=== PATIENT | female | born 1950 | race Caucasian/White ===

== ENCOUNTER → 2016-12-24 | Outpatient (CLI) | payer MEDICARE, OTHER ==
--- NOTE | 2016-12-24 16:15 | US ---
EXAM DESCRIPTION: Soft Tissue,Head/Neck CLINICAL HISTORY: 66 years Female, SKIN NODULE COMPARISON: None. TECHNIQUE: Limited grayscale and color Doppler imaging of the midline left lower neck. Images were saved to the patient's medical record. FINDINGS: There is a 9 mm x 10 mm x 5 mm hypoechoic ovoid focus seen within the area of concern. This is noted roughly 1 mm below the skin surface. This is likely compatible with a sebaceous cyst or other dermal abnormality. IMPRESSION: Skin related sebaceous cyst. This is not a lymph node given its location. Electronically signed by: Deandre Oshea MD 12/24/2016 4:14 PM CDT
== END | disposition home or self-care (01) ==
LOC: US 15:40
PROVIDERS: ATTEND Nurse Practitioner Acute Care
DX: L72.3 Sebaceous cyst (principal)

== ENCOUNTER → 2017-01-06 | Outpatient (CLI) | payer MEDICARE, OTHER | END | disposition home or self-care (01) | LOC: GMAM 18:15 | PROVIDERS: ATTEND Family Medicine | DX: J30.1 Allergic rhinitis due to pollen (principal) ==

== ENCOUNTER → 2017-07-30 | Outpatient (CLI) | payer MEDICARE, OTHER | END | disposition home or self-care (01) | LOC: MAMMO 11:32 | PROVIDERS: ATTEND Family Medicine | DX: Z12.31 Encounter for screening mammogram for malignant neoplasm of breast (principal) | CPT/HCPCS: 77063; G0202 ==

== ENCOUNTER → 2017-10-14 | Outpatient (CLI) | payer MEDICARE, OTHER | END | disposition home or self-care (01) | LOC: GMAM 14:27 | PROVIDERS: ATTEND Family Medicine | DX: J44.1 Chronic obstructive pulmonary disease with (acute) exacerbation (principal) ==

== ENCOUNTER → 2018-01-06 | Outpatient (CLI) | payer MEDICARE, OTHER | LOC: GMAM 17:26 | PROVIDERS: ATTEND Family Medicine | DX: R63.4 Abnormal weight loss (principal) ==

== ENCOUNTER → 2018-01-12 | Outpatient (CLI) | payer MEDICARE, OTHER ==
--- NOTE | 2018-01-12 10:28 | CT ---
EXAM DESCRIPTION: Chest w/Contrast : Computed Tomography. CLINICAL HISTORY: COUGH COMPARISON: CT scan abdomen and pelvis with contrast on the same visit. TECHNIQUE: Spiral-axial scans at 5.0 mm intervals through the lungs and thorax without IV contrast. 2.5 mm lung algorithm axial reconstructions. Coronal and sagittal 2.0 Mm reconstructions. No adverse reactions. Total Exam DLP: 238.18 mGy-cm. This exam was performed according to our departmental dose-optimization program which includes automated exposure control, adjustment of the mA and/or kV according to patient size and/or use of iterative reconstruction technique; to reduce radiation dose to as low as reasonably achievable (ALARA). FINDINGS: Marked enlargement of airspaces and destruction of alveoli with septal thickening more prevalent in the upper lobes decreasing inferiorly. Also more severe in the right upper lobe and in the left. Bilateral elongated parenchymal scars. More likely scarring than a nodule in the lateral right apex which extends to the pleura. Mosaic density in the lung parenchyma bilateral lower lobes. No pleural effusion or pneumothorax. Contrast enhancement relatively uniform in the thyroid gland. Also mediastinum and hilum with no enlarged lymph nodes or soft tissue masses. No enlarged axillary lymph nodes. Spondylosis at several levels in the thoracic spine with distraction. Calcification in the T12-L1 disc. No bone destruction. Partially healed right lateral sixth and seventh rib fractures. IMPRESSION: 1. Marked emphysematous changes in the lungs more severe in the upper lung nolasco than lower lung nolasco and more severe in the right upper lobe. No acute infiltrate. No pleural effusion or pneumothorax. Parenchymal scarring. More likely right apical scarring than nodule. Consider 3-[address] follow-up. 2. No masses or nodules in the mediastinum hilum or axilla or soft tissues. 3. Healing fractures of the lateral right sixth and seventh ribs. Electronically signed by: Jeronimo Barrios MD 01/12/2018 10:24 AM CDT
--- NOTE | 2018-01-12 11:04 | CT ---
EXAM DESCRIPTION: Abdomen/Pelvis w/Contrast: Computed Tomography. CLINICAL HISTORY: COUGH COMPARISON: None. TECHNIQUE: Spiral-axial scans at 5.0 mm intervals through the abdomen and pelvis, after nonionic IV contrast. No oral contrast. Coronal and sagittal 2.0 mm reconstructions. Delayed scans, liver through the pelvis. Axial-spiral 5mm. No adverse reactions. Total Exam DLP: 496.48 mGy-cm. This exam was performed according to our departmental dose-optimization program which includes automated exposure control, adjustment of the mA and/or kV according to patient size and/or use of iterative reconstruction technique; to reduce radiation dose to as low as reasonably achievable (ALARA). FINDINGS: Liver, Stomach, Spleen, Adrenal Glands: Negative. Adrenal glands difficult to visualize due to lack of surrounding fat. Pancreas, Gallbladder, Ducts: Gallbladder visualized. Minimal duct dilation. Pancreas is small and evaluation limited due to lack of surrounding fat. Kidneys and Ureters: Unremarkable. Mesentery: Minimal in most regions. No free air. No ascites. Aorta: Ectasia with atherosclerotic calcification and intimal wall thickening. Small Bowel: Gas and minimal fluid in most small bowel loops with no significant distention or air-fluid levels. Terminal Ileum/Cecum: Not distended by gas or stool. Appendix not seen. Colon: Diffuse gas and fecal matter. Marked redundancy of the sigmoid colon but no air-fluid levels. Pelvic Organs: No radiodense stones are material in the urinary bladder. Vaginal cuff unremarkable. Multiple loops of small bowel in the upper and mid pelvis. No fluid in the cul-de-sac. Spine and Bony Pelvis: Grade 2-3 L5-S1 anterolisthesis with significant disc space loss and bilateral foraminal stenosis. Bilateral L5 spondylolysis. Calcification in the T12-L1 disc space. Bilateral SI joint and pubic symphysis arthrosis. Bilateral hip joint arthrosis. Cyst in the anterior base of the lateral right femoral head. Abdominal Wall/Back Soft Tissues: Negative. IMPRESSION: 1. Gas throughout small bowel with obstipation indicated by fecal material throughout colon. Significant redundancy of the sigmoid colon. No significant air-fluid levels or bowel distention. No free air. 2. No soft tissue mass or abnormal enhancement or focal mass in the solid organs. No ascites or free fluid. 3. Grade 2-3 L5-S1 anterolisthesis with bilateral L5 pars spondylolysis and severe disc degeneration and disc space loss. Also bilateral severe foraminal stenosis. Correlate for bilateral L5 radiculopathy. Mild arthrosis bilateral SI joints. Bilateral hip arthrosis. 4. Mild to moderate atherosclerotic changes in the aorta. No aneurysm Electronically signed by: Jeronimo Barrios MD 01/12/2018 11:03 AM CDT
== END | disposition home or self-care (01) ==
LOC: CT 08:01
PROVIDERS: ATTEND Family Medicine
DX: R05 Cough (principal); R14.0 Abdominal distension (gaseous)

== ENCOUNTER → 2018-08-02 | Outpatient (CLI) | payer MEDICARE, OTHER ==
--- NOTE | 2018-08-03 10:22 | MAM ---
EXAM DESCRIPTION: 3D Screening BILATERAL : Digital Mammography. CLINICAL HISTORY: 68 years Female SCREENING . No complaints. No personal history of breast cancer. Sister with breast cancer. Childbirth. Postmenopausal 36 years. No HRT. Lifetime risk of developing breast cancer (Tyrer-Cuzick model)(%): 10.8. COMPARISON: Bilateral screening digital breast tomosynthesis 07/30/2017. TECHNIQUE: Bilateral CC and MLO projection full-field images, Digital tomosynthesis mammographic technique. Bilateral digital 2-D full-field MLO images. CAD not utilized. FINDINGS: The breast parenchymal density pattern is: Heterogeneously dense breast tissue, which may obscure small masses. No skin thickening or nipple retraction. Bilateral coarse calcifications and microcalcifications. Small circumscribed mass density in the retroareolar left breast 6:00 is no longer present. New mass density upper outer quadrant of the retroareolar right breast approximately 2:00 position. Not associated with microcalcifications. Similar density to surrounding fibroglandular tissues. Partially circumscribed margins. No new focal, stellate mass or density, focal asymmetry , and no suspicious microcalcifications left breast. IMPRESSION: BI-RADS CATEGORY: 0 - INCOMPLETE- Need additional imaging evaluation. FOLLOW-UP: Recall for additional imaging: Targeted right breast ultrasound retroareolar tissues.. Written communication concerning the IMPRESSION and Follow-up, will be mailed to the patient and referring health care provider. Electronically signed by: Jeronimo Barrios MD 08/03/2018 10:20 AM CDT
== END ==
LOC: MAMMO 12:30
PROVIDERS: ATTEND Family Medicine
DX: Z12.31 Encounter for screening mammogram for malignant neoplasm of breast (principal)

== ENCOUNTER → 2018-08-12 | Outpatient (CLI) | payer MEDICARE, OTHER ==
--- NOTE | 2018-08-12 15:48 | US ---
EXAM DESCRIPTION: Breast,Right: Ultrasound CLINICAL HISTORY: 68 yearsFemaleABN MAMMO COMPARISON: Digital tomosynthesis screening bilateral breast 08/02/2018. TECHNIQUE: Transcutaneous scanning of the right breast utilizing stockton-scale and Doppler modes. Scanning performed by the writing manager ; observation by Dr. Barrios. FINDINGS: Predominantly fibroglandular echotexture with scattered islands of fatty tissue. In the retroareolar right breast there are multiple cysts with circumscribed mendenhall, decreased or no echoes, parallel orientation and posterior enhancement features. Also visualized is a circumscribed hypoechoic mass measuring 7.7 x 6.8 mm with parallel orientation, central echogenicity and mixed posterior features. Nonvascular. Most likely a lymph node. No parenchymal edema or large calcifications. No overlying skin changes and no abnormal vascularity. IMPRESSION: Benign exam. BIRAD CATEGORY: 2 BENIGN FINDINGS. RECOMMENDATIONS: FOLLOW UP: Return to routine digital bilateral mammographic screening, one year interval from July 2018. The FINDINGS and the FOLLOW-UP plan were reviewed in person with the patient after the examination. Written communication explaining the IMPRESSION and FOLLOW-UP will be mailed to the patient and referring care provider. According to the [employer], yearly mammograms are recommended starting at age 40 and continuing as long as a woman is in good health. Any breast change noted on a breast self-exam should be reported promptly to the patient's healthcare provider. Breast MRI is recommended for women with an approximately 20-25% or greater lifetime risk of breast cancer, including women with a strong family history of breast or ovarian cancer and women who have been treated for Hodgkin's disease. A negative mammographic report should not delay tissue diagnosis in patients with significant clinical history or physical findings. Extremely dense breast tissue limits the sensitivity of digital mammography. Electronically signed by: Jeronimo Barrios MD 08/12/2018 3:46 PM CDT
== END ==
LOC: MAMMO 11:00
PROVIDERS: ATTEND Family Medicine
DX: N63.12 Unspecified lump in the right breast, upper inner quadrant (principal)

== ENCOUNTER 2018-09-10 13:10 | Inpatient (IN) | payer MEDICARE, OTHER ==
--- NOTE | 2018-09-10 13:20 | HP ---
SUPERVISING PHYSICIAN: Mahin Davidson MD CHIEF COMPLAINT: Shortness of breath. HISTORY OF PRESENT ILLNESS: This is a 68-year-old female patient who started having some upper respiratory symptoms with runny nose on Thursday of last week. By Thursday, she became very short of breath. By Thursday, she had progressively worsened to the point that she went to [facility] and saw Juhi Sanchez, Nurse Practitioner, and was given a Rocephin injection, a Celestone injection as well as given a prednisone taper and Levaquin prescription. She went to the pharmacy and was only given the prednisone. She was unaware that she was supposed to have gotten the Levaquin, so she returned to see her primary care physician, Dr. Shakira Perez, today and was extremely short of breath. She first refused to come to the hospital and Dr. Perez said she should go sampler pickup the Levaquin, but by the time she got out to her car, she was so short of breath that she decided she would come to the hospital. Dr. Perez called me and the patient will be directly admitted to the hospital. A chest x-ray was done at the Clinic, but no lab was done. The patient was directly admitted to the hospital. PAST MEDICAL HISTORY: 1. Chronic obstructive pulmonary disease with asthma. 2. Fibrocystic breast disease. 3. History of pulmonary nodule, stable. 4. Chronic tobacco use. 5. Diverticulosis of the colon. PAST SURGICAL HISTORY: 1. Appendectomy. 2. Hysterectomy. 3. Tonsillectomy and adenoidectomy. 4. Ectopic . OUTPATIENT MEDICATIONS: 1. Albuterol. 2. Estradiol. 3. Spiriva. 4. Calcium. 5. Multivitamin. ALLERGIES: NO KNOWN DRUG ALLERGIES. SOCIAL HISTORY: She lives in [place]. She is . She has two children. She currently smokes one pack of cigarettes daily. She has smoked for 46 years. She drinks alcohol on a social basis only and denies any illicit drug use. REVIEW OF SYSTEMS: GENERAL: Positive for fatigue. Negative for chills or fever. RESPIRATORY: Positive for coughing, wheezing, shortness of breath. CARDIAC: Negative for chest pain, palpitations or tachycardia. GASTROINTESTINAL: Negative for nausea, vomiting, diarrhea, constipation. GENITOURINARY: Negative for hematuria, dysuria or polyuria. MUSCULOSKELETAL: Negative for arthralgias, myalgias. NEUROLOGIC: Negative for weakness, headache, dizziness or seizures. PHYSICAL EXAMINATION: VITAL SIGNS: Temperature 97.4. Heart rate 65. Blood pressure 122/76. Respiratory rate 18 to 22. O2 saturation 86% on room air. It comes up to 91% on 2 liters nasal cannula. Her O2 saturation in the clinic was 84%. GENERAL: This is a 68-year-old, thin female patient who is sitting in her hospital bed. She is in mild respiratory distress. HEENT: Normocephalic, atraumatic. Pupils are equal and reactive. Oropharynx is clear. She does have some mild rhinorrhea. NECK: Supple without mass. RESPIRATORY: Expiratory wheezing throughout all lung nolasco as well as a few scattered rhonchi. She is somewhat diminished at the bases. CHEST: There is equal rise and fall of the chest with inspiration and expiration. She is slightly tachypneic at times. CARDIOVASCULAR: Regular rate and rhythm. GASTROINTESTINAL: Abdomen is soft, nondistended, nontender. Bowel sounds are positive. EXTREMITIES: No cyanosis, clubbing or edema. NEUROLOGIC: Awake, alert and oriented times three. Cranial nerves II-XII are grossly intact. LABORATORY: Her CMP, CBC, cardiac enzymes and blood cultures are pending at this time. IMPRESSION: 1. Chronic obstructive pulmonary disease with exacerbation in a chronic smoker. She has failed outpatient therapy and there are concerns for community acquired pneumonia. 2. History of pulmonary nodule that is stable. 3. Tobacco abuse with a 46+ pack year history. PLAN: We will admit the patient to the hospital. I have initiated pneumonia guidelines. She will continue on aggressive pulmonary hygiene including nebulizer treatments, both p.r.n. and scheduled. I have added Mucinex twice daily. I have encouraged her to stop smoking. She will have a nicotine patch. I will give her 1 liter of fluids. I will repeat her lab and chest x-ray in the morning. We will monitor cultures closely. I have also ordered a sputum culture with gram stain. I have also ordered some Solu-Medrol that I have tapered for the next several days. I will restart her home medications as soon as they are verified. We will continue to monitor the patient closely and follow as needed. Dr. Davidson is the collaborating physician and available for consultation. #[id number] [facility]
[2018-09-10] MEDS ORDERED: SODIUM CHLORIDE 0.9% (FLUSH) 10 ML SYG IV PRN (13:39)
[2018-09-10] MEDS ORDERED: ACETAMINOPHEN 325 MG TAB PO PRN (13:39)
[2018-09-10] MEDS ORDERED: ALBUTEROL SULFATE 2.5 MG/3 ML VIAL NEB PRN (13:39)
[2018-09-10] MEDS ORDERED: IV SET AND CAP CHANGE INJ INJ SCH (14:00)
[2018-09-10] MEDS ORDERED: methylPREDNISolone SODIUM SUC 125 MG/2 ML VIAL IV ONE (14:00)
[2018-09-10] MEDS ORDERED: SODIUM CHLORIDE 0.9% 1000ML 1,000 ML IVS ONE ×2 (14:23→20:08)
[2018-09-10] MEDS: IPRATROPIUM/ALBUTEROL 3 ML VIAL INH SCH ×2 (14:43→16:50)
[2018-09-10] MEDS: guaiFENesin ER TAB 600 MG TAB PO SCH ×2 (14:58→20:54)
[2018-09-10] MEDS: levoFLOXacin 750MG IV 750 MG in PREMIX BAG 1 BAG IVPB SCH (14:58)
[2018-09-10] MEDS: NICOTINE PATCH 14 MG TD SCH (14:59)
[2018-09-10] MEDS ORDERED: LEVALBUTEROL NEBS 1.25 MG/3 ML VIAL NEB PRN (19:26)
[2018-09-10] MEDS: LEVALBUTEROL NEBS 1.25 MG/3 ML VIAL NEB SCH (20:24)
[2018-09-10] MEDS: ENOXAPARIN SODIUM 40 MG/0.4 ML SYG SUBCU SCH (20:54)
[2018-09-10] MEDS: SODIUM CHLORIDE 0.9% (FLUSH) 10 ML SYG IV SCH (20:55)
[2018-09-10] MEDS ORDERED: methylPREDNISolone SODIUM SUC 125 MG/2 ML VIAL IV SCH (22:00)
[2018-09-11] MEDS ORDERED: methylPREDNISolone SODIUM SUC 125 MG/2 ML VIAL IV SCH (06:00)
[2018-09-11] MEDS: PANTOPRAZOLE SODIUM IV 40 MG VIAL IV SCH (06:09)
--- NOTE | 2018-09-11 06:34 | RAD ---
EXAM DESCRIPTION: Chest,1 View CLINICAL HISTORY:68 years Female, Pneumonia Comparison: CT chest from January 12, 2018 FINDINGS: Emphysematous lung changes. Chronic right-sided rib deformities. No pleural effusion. No pneumothorax. Cardiac and mediastinal silhouette is unremarkable. No acute osseous abnormality. Soft tissues are unremarkable. IMPRESSION: No focal lung consolidation. COPD. Electronically signed by: Davin Schulte MD 09/11/2018 6:32 AM R D INTERN
[2018-09-11] MEDS: LEVALBUTEROL NEBS 1.25 MG/3 ML VIAL NEB SCH ×4 (09:09→20:32)
[2018-09-11] MEDS: ESTRADIOL TAB 1 MG PO SCH (09:10)
[2018-09-11] MEDS: SODIUM CHLORIDE 0.9% (FLUSH) 10 ML SYG IV SCH ×2 (09:10→20:34)
[2018-09-11] MEDS: NICOTINE PATCH 14 MG TD SCH (09:10)
[2018-09-11] MEDS: guaiFENesin ER TAB 600 MG TAB PO SCH ×2 (09:10→20:33)
[2018-09-11] MEDS: levoFLOXacin 750MG IV 750 MG in PREMIX BAG 1 BAG IVPB SCH (13:32)
[2018-09-11] MEDS: methylPREDNISolone SODIUM SUC 125 MG/2 ML VIAL IV SCH ×2 (15:28→20:32)
--- NOTE | 2018-09-11 19:20 | PN ---
DATE: 09/11/18 SUPERVISING PHYSICIAN: Mahin Davidson M.D. SUBJECTIVE: The patient reports that she feels about 40% better than yesterday. She is able to pull a little bit more of a breath and feels like the steroids have helped. She has had no fever. She has had no nausea or vomiting. No chest pains. OBJECTIVE: VITAL SIGNS: Temperature 98, pulse 78, blood pressure 105/65, respirations 18, satting 97% on 2 liters nasal cannula. I's and O's show a weight of 43.0 kg. GENERAL: The patient is alert in no acute distress. Very pleasant. CHEST: Lung sounds are diminished throughout with no rhonchi or rales , just slight inspiratory and expiratory wheeze noted bilaterally with an extended expiratory phase. HEART: Regular rate and rhythm. ABDOMEN: Soft, non- tender. Positive bowel sounds. EXTREMITIES: Without any clubbing, cyanosis or edema. NEUROLOGIC: She is alert and oriented times three. LABORATORY: White count 3,800, hemoglobin 13.6, hematocrit 41.7, platelet count 234,000. Differential shows to be without a left shift. Chemistries show normal electrolytes with potassium 4.3, BUN 13, creatinine 0.55. Liver functions showing to be normalized now. MICROBIOLOGY: Blood cultures remain negative at 24 hours. RADIOLOGY: Chest x-ray, single view chest, shows per radiology interpretation no focal lung consolidations. COPD changes. ASSESSMENT: 1. Chronic obstructive pulmonary disease with exacerbation in a chronic smoker having failed to respond to outpatient therapy with concerns for community acquired pneumonia showing slow response to corticosteroids and aggressive pulmonary hygiene. 2. History of pulmonary nodule showing to be stable on previous CT studies. 3. Chronic tobacco abuse with a 46+ pack year history. Continue to reinforce smoking cessation. PLAN: Will continue antibiotic therapy and aggressive pulmonary hygiene at this point. She shows some improvement although it is slow, therefore will continue with Solu-Medrol. Will give 60 mg every 12 hours for 2 doses and reevaluate in the morning. She has been saline locked. She remains on DVT prophylaxis as per protocol. She is again encouraged to continue with stop smoking which we discussed at length. She needs to followup with Dr. Perez in regards to assistance with smoking cessation. Will reevaluate in the morning with anticipation of hopefully being able to discharge later tomorrow afternoon or possibly [facility]. Until then will continue to monitor and treat as needed. #[id number] [facility]
[2018-09-11] MEDS: ENOXAPARIN SODIUM 40 MG/0.4 ML SYG SUBCU SCH (20:33)
[2018-09-12] MEDS: PANTOPRAZOLE SODIUM IV 40 MG VIAL IV SCH (06:22)
[2018-09-12] MEDS: LEVALBUTEROL NEBS 1.25 MG/3 ML VIAL NEB SCH ×4 (07:46→20:44)
[2018-09-12] MEDS ORDERED: ALPRAZolam 0.25 MG TAB PO ONE (08:15)
[2018-09-12] MEDS ORDERED: SODIUM CHLORIDE 0.9% 500ML 500 ML IVS ONE (08:16)
[2018-09-12] MEDS ORDERED: ALPRAZolam 0.5 MG TAB ONE (08:17)
[2018-09-12] MEDS: guaiFENesin ER TAB 600 MG TAB PO SCH ×2 (08:27→20:36)
[2018-09-12] MEDS: ESTRADIOL TAB 1 MG PO SCH (08:27)
[2018-09-12] MEDS: NICOTINE PATCH 14 MG TD SCH (08:27)
[2018-09-12] MEDS: SODIUM CHLORIDE 0.9% (FLUSH) 10 ML SYG IV SCH (08:27)
[2018-09-12] MEDS ORDERED: guaiFENesin W/CODEINE LIQ 10 ML UD PO PRN (09:25)
[2018-09-12] MEDS: KCL 20MEQ/0.45% NS 1,000 ML IVS PRN ×2 (09:36→19:34)
[2018-09-12] MEDS ORDERED: guaiFENesin 100 MG/5 ML 10 ML UD ONE (09:40)
[2018-09-12] MEDS: methylPREDNISolone SODIUM SUC 40 MG/ML VIAL IV SCH ×2 (12:18→20:36)
[2018-09-12] MEDS: levoFLOXacin 750MG IV 750 MG in PREMIX BAG 1 BAG IVPB SCH (14:12)
--- NOTE | 2018-09-12 15:45 | PN ---
DATE: 09/12/18 SUPERVISING PHYSICIAN: Mahin Davidson M.D. SUBJECTIVE: The patient feels like she is about 10% better than she was yesterday. She is still having some increased rapid heart rate with any effort or any physical exertion, but no chest pain. No significant change in her shortness of breath. She has been afebrile. OBJECTIVE: VITAL SIGNS: Temperature 97.9, pulse 91, blood pressure 95/62, respirations 20, satting 96% on nasal cannula at 2 liters at rest. I's and O's show negative balance of 180 with 720 in, 900 out. Weight is 43.8 kg. GENERAL : The patient is alert. Appears to be in no acute distress. She is finishing breathing treatment. She is a little bit anxious. CHEST: Lung sounds remain essentially clear but diminished towards the bases. No wheezing is noted today. HEART: Regular rate and rhythm. Showing to be anywhere from 90 to 110 on bedside monitor. ABDOMEN: Soft, non-tender. Positive bowel sounds. EXTREMITIES: Without any clubbing, cyanosis or edema. NEUROLOGIC: She is alert and oriented times three. LABORATORY: White count 4,600, hemoglobin 13.4, hematocrit 41.1, platelet count 320,000. Differential today does show a left shift. Chemistries show normal electrolytes with potassium 4.4, BUN 16, creatinine 0.5. Blood sugar was 132, calcium 9.3. MICROBIOLOGY: Blood cultures remain negative at 24 hours. RADIOLOGY: No additional radiographic studies today. ASSESSMENT: 1. Chronic obstructive pulmonary disease with exacerbation in a chronic smoker having failed to respond to outpatient therapy with concerns for community acquired pneumonia showing slow response to corticosteroids and aggressive pulmonary hygiene. 2. History of pulmonary nodule showing to be stable on previous CT studies. 3. Chronic tobacco abuse with a 46+ pack year history. Continue to reinforce smoking cessation. PLAN: Will continue with aggressive bronchial hygiene and pulmonary toiletry along with continued antibiotic therapy and tapering off on corticosteroids to anticipate discharge tomorrow. Will start a p.o. regimen of prednisone. We are going to evaluate her today for possible need for oxygen at home with ambulation study. Will continue DVT prophylaxis. Again discussed at length smoking cessation. She will need followup with assistance with Dr. Perez at discharge. Until she is able to transition to outpatient management will continue to monitor and treat as needed. [facility][id number] [facility]
[2018-09-12] MEDS: ENOXAPARIN SODIUM 40 MG/0.4 ML SYG SUBCU SCH (20:37)
[2018-09-13 02:08] VITALS: O2SAT 99
[2018-09-13] MEDS: KCL 20MEQ/0.45% NS 1,000 ML IVS PRN (03:35)
[2018-09-13] MEDS: PANTOPRAZOLE SODIUM IV 40 MG VIAL IV SCH (06:12)
[2018-09-13 07:58] VITALS: BP 107/68; TEMP 98.1
[2018-09-13] MEDS: LEVALBUTEROL NEBS 1.25 MG/3 ML VIAL NEB SCH (08:15)
[2018-09-13] MEDS: ESTRADIOL TAB 1 MG PO SCH (08:35)
[2018-09-13] MEDS: NICOTINE PATCH 14 MG TD SCH (08:35)
[2018-09-13] MEDS: guaiFENesin ER TAB 600 MG TAB PO SCH (08:36)
[2018-09-13] MEDS ORDERED: predniSONE 20 MG TAB PO SCH (09:00)
--- NOTE | 2018-09-16 08:08 | DS ---
SUPERVISING PHYSICIAN: Hussein Perez MD ADMISSION DIAGNOSIS: 1. Chronic obstructive pulmonary disease with exacerbation in a chronic smoker. She has failed outpatient therapy and there are concerns for community acquired pneumonia. 2. History of pulmonary nodule that is stable. 3. Tobacco abuse with a 46+ pack year history. DISCHARGE DIAGNOSIS: 1. Chronic obstructive pulmonary disease with acute exacerbation having failed to respond to outpatient therapy with developing community acquired pneumonia , showing good response to corticosteroids and aggressive pulmonary hygiene. 2. History of pulmonary nodule, stable on previous CT studies and followed by Dr. Perez. 3. Chronic tobacco abuse with a 46+ pack year history, encouraged to stop smoking at discharge. REASON FOR HOSPITALIZATION: This is a 68-year-old female patient who started having some upper respiratory symptoms with runny nose on Thursday of last week. By Thursday, she became very short of breath. By Thursday, she had progressively worsened to the point that she went to [facility] and saw Juhi Sanchez, Nurse Practitioner, and was given a Rocephin injection, a Celestone injection as well as given a prednisone taper and Levaquin prescription. She went to the pharmacy and was only given the prednisone. She was unaware that she was supposed to have gotten the Levaquin, so she returned to see her primary care physician, Dr. Shakira Perez, today and was extremely short of breath. She first refused to come to the hospital and Dr. Perez said she should go grinder set up operator centerless the Levaquin, but by the time she got out to her car, she was so short of breath that she decided she would come to the hospital. Dr. Perez called me and the patient will be directly admitted to the hospital. A chest x-ray was done at the Clinic, but no lab was done. The patient was directly admitted to the hospital. LABORATORY: White count on admission was 5,600. At discharge, it was 4,600. Hemoglobin and hematocrit were stable at 13.4 and 41.1 at discharge respectively with platelet count 240,000. Differential did show a low left shift, but she was on corticosteroids prior to discharge. Chemistries showed normal electrolytes on admission and through hospitalization and at discharge. At discharge, potassium was 4.4, BUN 16, creatinine 0.5. Liver functions initially did show some elevation with AST 50, ALT 61. These normalized back to baseline prior to discharge with fluids. One cardiac enzyme showed troponin less than 0.02. MICROBIOLOGY: Final sputum cultures showed insufficient growth, initial reported moderate mixed gram positive iman. She had two sets of blood cultures that remained negative after 5 days. RADIOLOGY: Chest x-ray on admission showed no lung consolidations, chronic obstructive pulmonary disease per radiologic interpretation. EKG at time of admission showed normal sinus rhythm at [address] or T wave changes noted. HOSPITAL COURSE: Ms. Hall was admitted on 09/10/18 for exacerbation of chronic obstructive pulmonary disease with concerns for community acquired pneumonia. She required aggressive corticosteroid regimen and showed good clinical response on the date of discharge and transitioned to p.o. prednisone. She was treated with fairly aggressive antibiotic therapy with Levaquin and continued to show good response to treatment. She did have an episode of tachycardia which was associated with drinking caffeine with Xopenex treatments. This resolved with some fluids and some low dose Xanax. She was started on a nicotine patch and was doing well with smoking cessation. She did have an ambulation study which showed she qualified for oxygen therapy. Initially she was showing a room air ambulation of 80%. With oxygen, she improved to 92%. Prior to ambulation on 2 liters, she was 92%. She was able to ambulate for 6 minutes and required 5 minute recovery time. It was felt she had progressed to the point where she was stable enough to be discharged with continuation of treatment as an outpatient. PLAN: Ms. Hall was discharged on 09/13/18 with instructions to followup with Dr. Perez in one to two weeks or sooner if needed. She was to resume her prednisone taper dose as prior to hospitalization. She was qualified for oxygen which she was to wear as directed. She was once again encouraged to stop smoking. She was told to return to the hospital should she have any concerning symptoms. Diet at discharge was regular diet as tolerated. Activity to increase as tolerated. MEDICATIONS AT DISCHARGE: 1. Guaifenesin 600 mg twice daily. 2. Xopenex nebulizer treatments 1.25 mg nebulized delivery q.4h. as needed, # 25. 3. Levaquin 750 mg for 3 days. 4. Nicotine patch 14 mg 1 patch transdermally daily to be continued by Dr. Perez. All other medications prior to hospitalization were continued. DISPOSITION: The patient is discharged to care of family. DISCHARGE CONDITION: Stable and improved. #[id number] MTDD
== END 2018-09-13 11:50 | disposition home or self-care (01) | DRG 190 ==
LOC: MS 13:10
PROVIDERS: ADMIT Nurse Practitioner Acute Care; ATTEND Nurse Practitioner Acute Care
DX: J44.1 Chronic obstructive pulmonary disease with (acute) exacerbation (principal); J18.9 Pneumonia, unspecified organism; N60.19 Diffuse cystic mastopathy of unspecified breast; F17.210 Nicotine dependence, cigarettes, uncomplicated; K57.30 Diverticulosis of large intestine without perforation or abscess without bleeding; R91.1 Solitary pulmonary nodule; J44.0 Chronic obstructive pulmonary disease with (acute) lower respiratory infection

== ENCOUNTER → 2018-09-22 | Outpatient (CLI) | payer MEDICARE, OTHER ==
--- NOTE | 2018-09-22 09:39 | CT ---
EXAM DESCRIPTION: Chest w/Contrast CLINICAL HISTORY: 68 years, Female, PULMONARY NODULE COMPARISON: Previous CT chest January 12, 2018 TECHNIQUE: Thin-section noncontrast axial CT images are obtained according to our protocol. Reconstructed MPR images are created and reviewed as well. FINDINGS: Lungs: Wedgelike atelectasis of the right middle lobe with air bronchograms appears unchanged compared to previous study. Severe emphysematous changes are seen throughout the lungs. No worrisome pulmonary mass or nodule. Linear scarring in the posterior aspect of the apical posterior segment left upper lobe is seen. Bilateral apical pleural-parenchymal scarring. Previously mentioned right apical scarring does not appear masslike or nodular. This is unchanged from previous study. Calcified granuloma in the left midlung. Mediastinum: Lymph nodes are normal in size. Normal vascular contours. Heart size is normal with no pericardial effusion. Chest wall/axilla: No mass or adenopathy. Breast tissue appears symmetrical. Old healed right rib fractures. Lower neck/supraclavicular: No mass or adenopathy. Normal thyroid gland. Upper abdomen: Unremarkable upper abdominal viscera. Coronal and sagittal reformatted images confirm the findings. As a routine precaution, one might consider one-year follow-up from the previous study with CT of the chest in January 2019. IMPRESSION: Severe emphysema. Bilateral areas of scarring appears stable compared to previous study. See above. This exam was performed according to our departmental dose-optimization program, which includes automated exposure control, adjustment of the mA and/or kV according to patient size and/or use of iterative reconstruction technique. Total DLP equals 203.07 mGycm. Electronically signed by: Jean-Claude Garrett MD 09/22/2018 9:38 AM [facility]
== END ==
LOC: CT 09:00
PROVIDERS: ATTEND Family Medicine
DX: R91.1 Solitary pulmonary nodule (principal)

== ENCOUNTER → 2019-08-04 | Outpatient (CLI) | payer MEDICARE, OTHER ==
--- NOTE | 2019-08-08 17:25 | MAM ---
EXAM DESCRIPTION: 3D Screening BILATERAL : Digital Mammography. CLINICAL HISTORY: 69 years Female ANNUAL SCREENING . No complaints. No personal history of breast cancer. Female sibling with breast cancer age 62. Remote family history of breast cancer. Menarche age 13. Childbirth. Postmenopausal 35+ years. Currently on estrogen.. Lifetime risk of developing breast cancer (Tyrer-Cuzick model)(%): 10.4. COMPARISON: Bilateral screening digital breast tomosynthesis 02 August 2018. Ultrasound right breast one August 2018. TECHNIQUE: Bilateral CC and MLO projection full-field images, digital tomosynthesis mammographic technique. Bilateral digital 2-D full-field MLO images. CAD not available for tomosynthesis or 2-D images. FINDINGS: The breast parenchymal density pattern is: Heterogeneously dense breast tissue, which may obscure small masses. No skin thickening or nipple retraction. Bilateral solitary microcalcifications. Partially lobulated and partially smooth margin solid mass in the middle third of the left breast at the 11:00 position approximately 6.8 cm from the nipple has enlarged since the prior study. Not associated with microcalcifications. Same density as the surrounding fibroglandular tissues.. No new focal, stellate mass or density, focal asymmetry , and no suspicious microcalcifications right breast. IMPRESSION: BI-RADS CATEGORY: 0 - INCOMPLETE- Need additional imaging evaluation. FOLLOW-UP: Recall for additional imaging: Full-field left breast LM 2-D and tomosynthesis. Followed by left breast targeted ultrasound of the region of interest.. Written communication concerning the IMPRESSION and Follow-up, will be mailed to the patient and referring health care provider. Electronically signed by: Jeronimo Barrios MD 08/08/2019 5:23 PM CDT
== END ==
LOC: MAMMO 16:00
PROVIDERS: ATTEND Family Medicine
DX: Z12.31 Encounter for screening mammogram for malignant neoplasm of breast (principal)

== ENCOUNTER → 2019-08-22 | Outpatient (CLI) | payer MEDICARE, OTHER ==
--- NOTE | 2019-08-22 11:24 | CT ---
CT CHEST WITHOUT IV CONTRAST HISTORY: 69 years Female COPD COMPARISON: September 22, 2018. TECHNIQUE: Helical tomographic images of the chest were obtained without the use of intravenous contrast. Coronal and sagittal reformatted images were also provided. This exam was performed according to our departmental dose-optimization program, which includes automated exposure control, adjustment of the mA and/or kV according to patient size and/or use of iterative reconstruction technique. FINDINGS: Lungs and central airways: Severe radiologic changes of emphysema bilateral upper lobe scarring again demonstrated, unchanged. No pulmonary nodule or mass detected. Central airways are patent. Pleura: No pleural effusion or pleural thickening. Heart/pericardium: Heart size is normal. No significant pericardial fluid detected. Mediastinum/martínez: No mediastinal or hilar mass or lymphadenopathy. Vascular structures: There are scattered atherosclerotic changes noted. Regional surrounding soft tissues: A few nonspecific focal areas of soft tissue attenuation are present in the superior left breast. Please see same day mammogram evaluation for additional details. Bones: No acute process detected. Included abdomen: No acute process detected. IMPRESSION: Severe radiologic changes of emphysema. Bilateral upper lobe scarring, unchanged. No suspicious pulmonary nodule or mass. Lung RADS category: 1 Recommendation: Follow-up low dose screening CT in 12 months Electronically signed by: Ziggy Haas MD 08/22/2019 11:23 AM [facility]
--- NOTE | 2019-08-22 14:13 | MAM ---
EXAM DESCRIPTION: Diagnostic Mammo,Left (accession [id number]), Breast,Left (accession [id number]): Ultrasound CLINICAL HISTORY: 69 yearsFemaleAbnormal mammogram mass density upper mid third left breast. COMPARISON: Bilateral screening digital breast tomosynthesis August 04, 2019. TECHNIQUE: Left breast LM projection full-field images, digital tomosynthesis technique. Left breast 2-D digital full-field images. LM image. CAD not available. . Transcutaneous scanning of the left breast utilizing stockton-scale and Doppler modes. Scanning performed by the customer service sales consultant ; observation by Dr. Barrios. FINDINGS: The breast parenchymal density pattern is: Heterogeneously dense breast tissue, which may obscure small masses. No skin thickening or nipple retraction scattered microcalcifications and coarse calcifications. The mass densities still visualized in the left breast at the 11:00 position approximately 6 cm from the nipple, on the LM full-field tomosynthesis images. Ultrasound: Scanning of the upper left breast at the region of interest approximately 6 to 7 cm from the nipple. At the 11:00-12:00 position, is a partially lobulated and partially circumscribed mass which also may have some angled margins. Mostly posterior acoustic shadowing. Wider than tall orientation. Nonvascular. Dimensions are 1.2 x 1.1 x 1.0 cm. The nearby tissues, a slightly thick walled cyst is visualized with central anechoic features and posterior acoustic enhancement. This cyst was not measured. IMPRESSION: Indeterminate soft tissue mass in the upper mid left breast with some features of malignancy. 1. BI-RADS Category 4: SUSPICIOUS. Sub-category 4A - Low Suspicion For Malignancy. 2. Surgical consultation and tissue diagnosis is recommended if there are no clinical contraindications. The FINDINGS and FOLLOW-UP plan were reviewed in person with the patient following the examination. Written communication explaining the IMPRESSION and FOLLOW-UP will be mailed to the patient and referring care provider. CRITICAL COMMUNICATION: The critical value was discussed directly by phone by Dr. Barrios, with Dr. Shakira Perez at approximately 1000 hours, on 22 August 2019.: Electronically signed by: Jeronimo Barrios MD 08/22/2019 2:12 PM MANAGER TECHNICAL TRAINING
== END ==
LOC: MAMMO 09:24
PROVIDERS: ATTEND Family Medicine
DX: R92.8 Other abnormal and inconclusive findings on diagnostic imaging of breast (principal); J44.9 Chronic obstructive pulmonary disease, unspecified; J43.9 Emphysema, unspecified; R91.8 Other nonspecific abnormal finding of lung field

== ENCOUNTER → 2019-08-25 | Outpatient (CLI) | payer MEDICARE, OTHER ==
--- NOTE | 2019-08-25 09:19 | OP ---
DATE OF PROCEDURE: 08/25/19 PREOPERATIVE DIAGNOSIS: 1. Solid irregular mass, left breast, at 11 o'clock. POSTOPERATIVE DIAGNOSIS: 1. Solid irregular mass, left breast, at 11 o'clock. PROCEDURE: 1. Sonographically guided needle core biopsy, left breast mass. SURGEON: Alex Kyle MD. PATTERN GATER: None. ANESTHESIA: Local infiltration of 1% lidocaine. INDICATION: The patient is a 69-year-old female who on routine mammography was found to have a solid mass in the 11 o'clock position of the left breast. She is brought to the Ultrasound Suite today for biopsy after the risks, benefits and alternatives were discussed and accepted. FINDINGS: Several good cores were taken with ultrasound identifying of the needle in the mass. PROCEDURE: The patient was placed in the supine position with the head of the bed slightly elevated, the left breast was examined with the ultrasound probe. The lesion is identified. The breast lateral to the ultrasound probe was prepped with Betadine and draped. Local infiltration of anesthesia was obtained with 1% lidocaine and the lidocaine was infiltrated between the mass and the skin with a 25-gauge needle. When this was done, a stab wound was then made with a 15 blade and the biopsy device was introduced and advanced under ultrasound guidance to the mass. It was fired and specimens were taken. Hemostasis was obtained with pressure and a single suture of 4-0 Nylon. When this was done, a sterile pressure dressing was applied. The specimens were sent for pathological evaluation. The patient tolerated the procedure well. Estimated blood loss less than 5 mL. #[id number] [facility]
--- NOTE | 2019-08-25 11:54 | US ---
EXAM DESCRIPTION: Biopsy/Needle Guidance: Ultrasound. CLINICAL HISTORY: 69 years Female LEFT BREAST MASS COMPARISON: Diagnostic ultrasound of the left breast on 22 August 2019. TECHNIQUE: The procedure was performed by Dr. Kyle. Repeat ultrasound localized left breast mass at the 12:00 position of the left breast 6 cm from the nipple.. Sterile preparation. Sterile ultrasound guidance during needle passes. FINDINGS: Hypoechoic mass with slightly circumscribed lobulated and ill defined, angulated margins at the 12:00 position of the left breast 6 cm from the nipple. Multiple images show the echogenic core biopsy needle within the mass. No cysts or other solid masses IMPRESSION: Successful, ultrasound-guided fine-needle core biopsy of left breast mass. Adequate core samples were obtained. Pathology examination at remote facility, results pending. Electronically signed by: Jeronimo Barrios MD 08/25/2019 11:52 AM [facility]
== END ==
LOC: US 07:48
PROVIDERS: ATTEND Surgery
DX: N63.22 Unspecified lump in the left breast, upper inner quadrant (principal)

== ENCOUNTER → 2019-11-28 | Outpatient (CLI) | payer MEDICARE, OTHER | LOC: GMAJS 09:45 | PROVIDERS: ATTEND Physician Assistant | DX: R00.0 Tachycardia, unspecified (principal); R05 Cough ==

== ENCOUNTER → 2020-02-27 | Outpatient (CLI) | payer MEDICARE, OTHER ==
--- NOTE | 2020-02-28 13:36 | US ---
EXAM DESCRIPTION: 3D Diagnostic, Left (accession [id number]), Breast,Left (accession [id number]): Ultrasound CLINICAL HISTORY: 69 yearsFemaleLEFT BREAST MASS, F/U BX . Benign Left breast needle core biopsy August 2019: "Stromal fibrosis". No complaints or personal history of breast cancer. Female sibling with breast cancer age 63. Menarche age 13. Childbirth age 22. Menopause age 22. Currently on HRT Lifetime risk of developing breast cancer (Tyrer-Cuzick model)(%): 10.4. COMPARISON: Left breast diagnostic digital tomosynthesis and ultrasound and ultrasound-guided core needle biopsy left breast August 2019. TECHNIQUE: Left breast LM, CC, and MLO projection full-field images, digital tomosynthesis technique. Left breast 2-D digital full-field images: LM, CC, and MLO projections. CAD available for 2-D images.. Transcutaneous scanning of the left breast utilizing stockton-scale and Doppler modes. Scanning performed by the universal grinder operator ; observation by Dr. Barrios. FINDINGS: The breast parenchymal density pattern is: Heterogeneously dense breast tissue, which may obscure small masses. No skin thickening or nipple retraction again noted is a mass density at the 12:00 position of the middle third of the left breast 6 cm from the nipple. No suspicious microcalcifications. Stable size compared to the prior study. Solitary microcalcifications elsewhere in the breast. No new focal, stellate mass or density, focal asymmetry , and no suspicious microcalcifications left breast. Stable mammograms compared to prior study, taking into account differences in mammographic technique Ultrasound: Scanning of the left breast middle third. Mixture of fatty and fibroglandular tissues. Hypoechoic mass measuring 11 x 11 mm at the 12:00 position, 8 cm from the nipple. Circumscribed margins and wider than tall orientation. Trace posterior acoustic shadowing. Echogenic striations in the mass are consistent with previous core biopsy. More proximally is a 7 mm anechoic cyst with well-defined margins and not vascular. Other cysts also present within the fibroglandular tissues. IMPRESSION: Benign exam. 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 BIRAD CATEGORY: 2 BENIGN FINDINGS. RECOMMENDATIONS: FOLLOW UP: Routine digital bilateral mammographic screening, after one year anniversary date in July 2020. Written communication explaining the IMPRESSION and follow-up, will be mailed to the patient and referring health care provider. The FINDINGS and the FOLLOW-UP plan were reviewed in person with the patient after the examination. According to the [employer], yearly mammograms are recommended starting at age 40 and continuing as long as a woman is in good health. Any breast change noted on a breast self-exam should be reported promptly to the patient's healthcare provider. Breast MRI is recommended for women with an approximately 20-25% or greater lifetime risk of breast cancer, including women with a strong family history of breast or ovarian cancer and women who have been treated for Hodgkin's disease. A negative mammographic report should not delay tissue diagnosis in patients with significant clinical history or physical findings. Extremely dense breast tissue limits the sensitivity of digital mammography. Electronically signed by: Jeronimo Barrios MD 02/28/2020 1:34 PM CDT
== END ==
LOC: MAMMO 15:03
PROVIDERS: ATTEND Surgery
DX: D24.2 Benign neoplasm of left breast (principal); N60.02 Solitary cyst of left breast
CPT/HCPCS: 76641; 77065; G0279

== ENCOUNTER 2020-03-16 11:43 | Observation (INO) | payer MEDICARE, OTHER ==
[2020-03-16] MEDS ORDERED: IPRATROPIUM/ALBUTEROL 3 ML VIAL INH ONE (12:02)
[2020-03-16] MEDS ORDERED: methylPREDNISolone SODIUM SUC 125 MG/2 ML VIAL IV ONE (12:02)
[2020-03-16] MEDS ORDERED: levoFLOXacin 500MG IV 500 MG in PREMIX BAG 1 BAG IVPB ONE (12:02)
[2020-03-16] MEDS ORDERED: SODIUM CHLORIDE 0.9% 1000ML 1,000 ML IVS PRN (12:02)
[2020-03-16] MEDS ORDERED: SODIUM CHLORIDE 0.9% (FLUSH) 10 ML SYG IV PRN ×2 (12:02→13:54)
--- NOTE | 2020-03-16 12:04 | ED.PDOC ---
History of Present Illness - General Chief Complaint: Respiratory Problem Time Seen by Provider: 03/16/20 11:51 Source: patient, RN notes reviewed, Vital Signs reviewed Exam Limitations: no limitations - History of Present Illness Initial Comments: This is a 69-year-old female with history of COPD, chronic tobacco use, presenting to the emergency department for shortness of breath, cough is progressively worsened for the past 2 weeks. She was seen by her PCP 1 month ago for cough, tested negative for COVID-19 on 02/12/2020. She was given a Z-Jeremias and a steroid taper, but an states she never got completely better And has become more short of breath over the last 2 weeks. She does not use oxygen at home. She denies any fevers. She was seen by her PCP earlier today and sent to the emergency department for evaluation. She had a nebulizer treatment approximately 30 minutes ago with minimal improvement. She does report some unintentional weight loss, approximately 15 pounds in the last 4 months. She states "nothing tastes good". She has been evaluated for a breast mass recently, biopsy revealed a benign cyst. Allergies/Adverse Reactions: Allergies NO KNOWN ALLERGY Allergy (Verified 03/16/20 12:02) Home Medications: Ambulatory Orders Estradiol 1 mg PO DAILY 07/06/15 Multiple Vitamins W/ Minerals [Centrum Silver Adult 50+] 1 tab PO DAILY 07/06/15 Mometasone Furoate-Formoterol [Dulera 100-5 Mcg/Act] 1 aer IN DAILY 09/11/18 Tiotropium [place] Monohydrate [Spiriva Respimat] 2.5 mcg IN DAILY 09/11/18 Levalbuterol Nebs [Xopenex NEBS] 1.25 mg NEB RTQ4 PRN #25 neb 09/13/18 Nicotine Patch 14 mg [Habitrol Patch 14mg] 1 ea TD DAILY patch 09/13/18 guaiFENesin ER TAB [Mucinex Tab] 1,200 mg PO BID tab 09/13/18 Review of Systems - Review of Systems Constitutional: Denies: chills, fever EENTM: Denies: eye pain, nose pain, nose congestion, throat pain Respiratory: States: cough, short of breath. Denies: orthopnea, stridor, wheezing Cardiology: Denies: chest pain, edema Gastrointestinal/Abdominal: Denies: diarrhea, nausea, vomiting Genitourinary: Denies: dysuria, hematuria Musculoskeletal: Denies: back pain, joint pain, joint swelling, muscle stiffness, neck pain Skin: Denies: lesions, rash Neurological: Denies: headache, paresthesia, weakness Endocrine: States: unexplained weight loss. Denies: unexplained weight gain Hematologic/Lymphatic: States: no symptoms reported Past Medical History (General) - Patient Medical History Hx Seizures: No Hx Stroke: No Hx Asthma: Yes Hx of COPD: Yes Hx Congestive Heart Failure: No Hx Pacemaker: No Hx Hypertension: No Hx Diabetes: No Hx MRSA: No - Social History Hx Alcohol Use: No Hx Substance Use: No Hx Physical Abuse: No Hx Emotional Abuse: No Family Medical History - Family History Mother Living Status: Hx Family Asthma: No Hx Family Congestive Heart Failure: No Hx Family Hypertension: Yes Hx Family Stroke: No Hx Cardiac Disease: Yes Hx Family Diabetes: No Hx Family Cancer: No Father Living Status: Hx Family Asthma: No Hx Family Congestive Heart Failure: No Hx Family Hypertension: No Hx Family Stroke: No Hx Cardiac Disease: No Hx Family Diabetes: No Hx Family Cancer: No Hx Family;Other: hx of gallbladder Ca Physical Exam - Physical Exam General Appearance: Alert, No apparent distress, Other - Thin ENT Exam: normal ENT inspection, hearing grossly normal Neck: full range of motion, supple, normal inspection, trachea midline Respiratory: lungs clear, normal breath sounds, decreased breath sounds - With prolonged expiratory phase, accessory muscle use - Mild, other Cardiovascular/Chest: normal peripheral pulses, regular rate, rhythm, no edema, no gallop, no JVD Gastrointestinal/Abdominal: normal bowel sounds, non tender Extremity: normal range of motion, non-tender, normal inspection Neurologic: no motor/sensory deficits, alert, normal mood/affect, oriented x 3 Skin Exam: normal color, warm/dry Progress - Progress Progress: 03/16/20 12:57 Recheck. Respiratory rate 22, sats 93 to 94% on room air, no respiratory distress noted. Pt reports some improvement after A&A nebs. Lungs remain clear, slightly decreased air motion, but no significant wheezing at this time. Reviewed labs, chest x-ray findings.Will discuss with hospitalist regarding disposition 03/16/20 13:05 Discussed with Idris Perry, hospitalist. He had talked with Dr. Perez, plan was initially to direct admit for clinic, but the pt came to the ED and was unaware of plan for direct admit. Reviewed VS,Chest x-ray, lab findings. Will obs. Requests repeat COVID-19 test 03/16/20 13:15 Recheck. Patient stood up and walked to the bathroom, and after minimal exertion she seems more dyspneic, respiratory rate in the upper 20s to low 30s, sats remain normal. Discussed plan for observation. Patient & family agree with plan MDM: DDX:Pneumonia, COPD, CHF, PE 69-year-old female, longstanding smoker, history of COPD, presenting with shortness of breath progressively worsening for 2 weeks. She is on an estrogen supplement. She is not tachycardic, no chest pain, no leg swelling. D-dimer is negative. With negative d-dimer and no signs/symptoms of DVT, I feel PE risk is low to moderate, and PE effectively ruled out with negative d-dimer. BNP is normal, troponin is negative. Chest x-ray shows no acute process. Strongly suspect COPD exacerbation. Will place in observation for serial albuterol and Atrovent nebs, steroids. Hospitalist requested repeat COVID 19 testing, although patient tested -1-month ago. She denies any recent fever. She has no leukopenia, elevated d-dimer, feel COVID-19 unlikely. Armand Herrera DO [facility] #[id number] - Results/Orders Results/Orders: EKG reviewed by me at 12:17 PM. Sinus rhythm, rate 81, short HI interval at 102. Left axis, poor R wave progression, no ST segment elevations or depression Study: Single Frontal Radiograph of the Chest. Indication:SOB, cough Comparison: September 11, 2018 Impression: Heart size normal. Main pulmonary artery, which can indicate pulmonary arterial hypertension. Severe emphysema. Patchy opacities at the lung bases likely reflecting scarring as it appears similar to the prior, however superimposed consolidation not excluded. No pneumothorax. Several right rib fractures. Osteopenia. If this is a new finding, DEXA scan recommended as well as evaluation for possible osteoporosis treatment. Electronically signed by: Caio Youngblood MD 03/16/2020 12:51 PM CDT 03/16/20 12:02 Sodium Chloride 0.9% (Flush) [Saline Flush Syringe] 10 ml IV PRN PRN Sodium Chloride 0.9% 1000ML [Ns 1000 ml] 1,000 ml IVS .QD levoFLOXacin 500MG IV [Levaquin 500MG IV] 500 mg Premix Bag 1 bag IVPB ONCE EKG Assessment ONCE Pulse Oximetry Assessment DAILY 03/16/20 12:15 EKG STAT 03/16/20 12:17 BLOOD CULTURE Stat 03/16/20 14:15 LACTIC ACID Q2H 03/16/20 16:15 LACTIC ACID Q2H 03/16/20 18:15 LACTIC ACID Q2H 03/16/20 20:15 LACTIC ACID Q2H 03/16/20 22:15 LACTIC ACID Q2H 03/17/20 09:00 Pulse Ox Daily Laboratory Results - last 24 hr 03/16/20 03/16/20 03/16/20 12:15 12:15 12:17 WBC 5.6 RBC 4.66 Hgb 14.2 Hct 42.6 MCV 91.5 MCH 30.4 MCHC 33.3 RDW 13.0 Plt Count 276 MPV 10.0 Absolute Neuts (auto) 3.20 Absolute Lymphs (auto) 1.50 Absolute Monos (auto) 0.70 Absolute Eos (auto) 0.10 Absolute Basos (auto) 0.10 Neutrophils % 56.9 Lymphocytes % 27.7 Monocytes % 12.7 H Eosinophils % 1.3 Basophils % 1.4 D-Dimer, Quantitative Sodium 141 Potassium 3.3 L Chloride 104 Carbon Dioxide 29 Anion Gap 11.3 L BUN 17 Creatinine 0.46 L BUN/Creatinine Ratio 37.0 H Random Glucose 80 Serum Osmolality 281.8 Lactic Acid 1.3 Calcium 9.0 Total Bilirubin 0.3 AST 31 ALT 19 Alkaline Phosphatase 53 Troponin I B-Natriuretic Peptide 19.3 Serum Total Protein 6.9 Albumin 4.1 Globulin 2.8 Albumin/Globulin Ratio 1.5 03/16/20 03/16/20 12:28 12:28 WBC RBC Hgb Hct MCV MCH MCHC RDW Plt Count MPV Absolute Neuts (auto) Absolute Lymphs (auto) Absolute Monos (auto) Absolute Eos (auto) Absolute Basos (auto) Neutrophils % Lymphocytes % Monocytes % Eosinophils % Basophils % D-Dimer, Quantitative 355 Sodium Potassium Chloride Carbon Dioxide Anion Gap BUN Creatinine BUN/Creatinine Ratio Random Glucose Serum Osmolality Lactic Acid Calcium Total Bilirubin AST ALT Alkaline Phosphatase Troponin I < 0.02 B-Natriuretic Peptide Serum Total Protein Albumin Globulin Albumin/Globulin Ratio Departure - Departure Clinical Impression: COPD exacerbation Time of Disposition: 13:05 Disposition: Admit Patient Departure Forms: ED Discharge - Pt. Copy, Patient Portal Self Enrollment Referrals: Hussein Perez MD [Primary Care Provider] - 1-2 Weeks Home Medications: Ambulatory Orders Estradiol 1 mg PO DAILY 07/06/15 Multiple Vitamins W/ Minerals [Centrum Silver Adult 50+] 1 tab PO DAILY 07/06/15 Mometasone Furoate-Formoterol [Dulera 100-5 Mcg/Act] 1 aer IN DAILY 09/11/18 Tiotropium [place] Monohydrate [Spiriva Respimat] 2.5 mcg IN DAILY 09/11/18 Levalbuterol Nebs [Xopenex NEBS] 1.25 mg NEB RTQ4 PRN #25 neb 09/13/18 Nicotine Patch 14 mg [Habitrol Patch 14mg] 1 ea TD DAILY patch 09/13/18 guaiFENesin ER TAB [Mucinex Tab] 1,200 mg PO BID tab 09/13/18
--- NOTE | 2020-03-16 12:53 | RAD ---
Study: Single Frontal Radiograph of the Chest. Indication:SOB, cough Comparison: September 11, 2018 Impression: Heart size normal. Main pulmonary artery, which can indicate pulmonary arterial hypertension. Severe emphysema. Patchy opacities at the lung bases likely reflecting scarring as it appears similar to the prior, however superimposed consolidation not excluded. No pneumothorax. Several right rib fractures. Osteopenia. If this is a new finding, DEXA scan recommended as well as evaluation for possible osteoporosis treatment. Electronically signed by: Caio Youngblood MD 03/16/2020 12:51 PM CDT
--- NOTE | 2020-03-16 13:30 | HP ---
SUPERVISING PHYSICIAN: Dayne Wagner MD CHIEF COMPLAINT: Shortness of breath. HISTORY OF PRESENT ILLNESS: Ms. Hall is a 69-year-old female patient with a longstanding history of chronic obstructive pulmonary disease and chronic tobacco abuse. She presented to the Emergency Room today from the clinic complaining of shortness of breath, progressive cough that has gotten worse over the last two weeks. She endorses that she had been seen by Dr. Perez a month ago for similar symptoms and tested negative for COVID-19. That was on 02/12/20. She was at that time given a Z-Jeremias steroid taper. She states she got a little bit better, but not completely over that episode. She endorses that over the last two weeks, her shortness of breath has progressively worsened. She does not normally use oxygen at home, but she does use it p.r.n. and has started to use is more than she normally does. She normally does not take a rescue inhaler during the day, but has had to use a rescue inhaler multiple times throughout the day. She was given a breathing treatment at Dr. Perez's office and sent to the ER for evaluation. Laboratory studies showed she had a normal white count without a left shift. Chemistries showed a mild hyponatremia at 3.3. Otherwise, electrolytes were within normal limits. Troponin was less than 0.02 and BNP was normal at 19. Respiratory viral panel was pending. D-dimer was normal. Chest x-ray per radiologic interpretation showed patchy opacities in the lung bases, likely reflecting scarring as it appears similar to previous, however, superimposed consolidation is not excluded. There was no mention of a pneumothorax. There was noted several old rib fractures. Vital signs in the ER on room showed saturation 90% with respirations 22 to 26. She was not tachycardic, but heart rate was 92, blood pressure 118/68, afebrile at 97.6. Given her COPD and exacerbation, she was given Solu-Medrol, Levaquin and DuoNeb treatments. She is now going to be placed in observation for acute exacerbation of COPD. PAST MEDICAL HISTORY: 1. Chronic obstructive pulmonary disease with component of asthma. 2. Fibrocystic breast disease. 3. History of pulmonary nodules, stable. 4. Chronic tobacco abuse. 5. Diverticulosis of the colon. PAST SURGICAL HISTORY: 1. Appendectomy. 2. Hysterectomy. 3. Tonsillectomy and adenoidectomy. 4. Ectopic . OUTPATIENT MEDICATIONS: 1. Mucinex 1200 mg b.i.d. 2. Spiriva 2.5 mcg daily. 3. Nicotine patch 1 daily. 4. Multivitamin, Centrum Silver 1 daily. 5. Dulera 100-5 mg 1 daily. 6. Xopenex nebulizer treatments 1.25 mg q.4h. as needed. 7. Estradiol. ALLERGIES: NO KNOWN DRUG ALLERGIES. FAMILY HISTORY: Noncontributory. SOCIAL HISTORY: The patient works at [employer] in [place]. She is . She lives in [place]. She has two children. She does currently smoke, reported 1 cigarette in the morning, 1 cigarette in the afternoon, but has smoked since age 47 up to 1 pack a day. She drinks alcohol just on a social basis. She denies any illicit drug use. REVIEW OF SYSTEMS: CONSTITUTIONAL: Positive for general fatigue, general malaise. Negative for any obvious chills or fever. RESPIRATORY: As noted in history of present illness, worsening shortness of breath without notable coughing or wheezing. CARDIOVASCULAR: Negative for chest pain, palpitations or syncopal episodes. GASTROINTESTINAL: Negative for nausea, vomiting, diarrhea, constipation or abdominal pain. GENITOURINARY: Negative for dysuria, hematuria, polyuria. MUSCULOSKELETAL: Negative for myalgias, arthralgias. NEUROLOGIC: Negative for weakness, headaches, dizziness or seizures. PHYSICAL EXAMINATION: VITAL SIGNS: Temperature 98, pulse 110, blood pressure 96/76, respirations 20, saturation 90% to 95% on room air at rest. GENERAL: The patient is a little emotional, but does not appear to be in any acute distress. She is upset that her cannot stay during her isolation time awaiting COVID-19 test. She does appear a little dry. RESPIRATORY: Lung sounds are actually fairly clear to throughout, just very faintly decreased towards the bases. No obvious rhonchi or rales noted. CARDIOVASCULAR: Regular rate and rhythm without any appreciable murmurs, gallops, or rubs. ABDOMEN: Soft, nontender. Positive bowel sounds. EXTREMITIES: There is no edema. NEUROLOGIC: Cranial nerves II-XII are grossly intact. Facial features are symmetrical. Extraocular movements are within normal limits. There is no nystagmus noted. The patient is alert and oriented times three. LABORATORY: CBC showed normal white count. Chemistries showed mildly low potassium at 3.3, otherwise electrolytes within normal limits. Magnesium low at 1.6. Calcium within normal limits. Liver functions all within normal limits. Troponin less than 0.02. BNP within normal limits at 19. Viral panel pending. RADIOLOGY: Chest x-ray again showed patchy opacities to the lung bases, likely reflecting scarring. This appears similar to previous, however, superimposed consolidation is not excluded. There was again note of emphysema with several right rib fractures. 12-lead EKG showed sinus rhythm at [address] segment elevations or depressions. ASSESSMENT: 1. Acute exacerbation of chronic obstructive pulmonary disease with concerns for developing community acquired pneumonia. 2. 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 3. Mild electrolyte imbalance with a hyponatremia and hypomagnesemia. 4. History of pulmonary nodules, stable. 5. Chronic tobacco abuse. 6. Diverticulosis of the colon. PLAN: Ms. Hall is going to be placed in observation for acute chronic obstructive pulmonary disease exacerbation. She was given Solu-Medrol 125 mg in the ER. This will be followed with 40 mg q.12h. We will also continue with antibiotic coverage with Levaquin. She will be on DVT prophylaxis per protocol. We will continue Solu-Medrol 40 q.12h. I anticipate she may be able to go home tomorrow or at least Thursday. We will do aggressive pulmonary hygiene. She is in airborne isolation. Therefore, we will attempt to do her breathing treatments with a handheld inhaler. If she is not able to successfully do this, we will certainly need to advance to a nebulizer system. Until the patient can transition to outpatient management, we will continue to monitor and treat as needed. #[id number] [facility]
[2020-03-16] MEDS ORDERED: ALBUTEROL SULFATE 2.5 MG/3 ML VIAL NEB ONE (13:42)
[2020-03-16] MEDS ORDERED: MORPHINE SULFATE INJ 10 MG/ML VIAL IV PRN (14:00)
[2020-03-16] MEDS ORDERED: ONDANSETRON INJ 4 MG/2 ML VIAL IV PRN (14:00)
[2020-03-16] MEDS ORDERED: MAGNESIUM HYDROXIDE 30 ML UD PO PRN (14:00)
[2020-03-16] MEDS ORDERED: IV SET AND CAP CHANGE INJ INJ SCH (14:00)
[2020-03-16] MEDS ORDERED: ACETAMINOPHEN 325 MG TAB PO PRN (14:00)
[2020-03-16] MEDS ORDERED: ALBUTEROL INHALER 64 PUFF/8GM INH PRN (14:03)
[2020-03-16] MEDS ORDERED: ALBUTEROL INHALER 64 PUFF/8GM INH SCH (16:00)
[2020-03-16] MEDS: methylPREDNISolone SODIUM SUC 40 MG/ML VIAL IV SCH (17:54)
[2020-03-16] MEDS ORDERED: LEVALBUTEROL NEBS 1.25 MG/3 ML VIAL NEB PRN (18:14)
[2020-03-16] MEDS ORDERED: PANTOPRAZOLE SODIUM IV 40 MG VIAL ONE (20:16)
[2020-03-16] MEDS: ENOXAPARIN SODIUM 40 MG/0.4 ML SYG SUBCU SCH (20:40)
[2020-03-17] MEDS: methylPREDNISolone SODIUM SUC 40 MG/ML VIAL IV SCH ×4 (00:25→17:56)
[2020-03-17] MEDS: PANTOPRAZOLE SODIUM IV 40 MG VIAL IV SCH (06:00)
--- NOTE | 2020-03-17 06:00 | RAD ---
EXAM: XR Chest, 1 View CLINICAL HISTORY: The patient is 69 years old and is Female; Pneumonia TECHNIQUE: Frontal view of the chest. COMPARISON: Chest radiograph March 16, 2020 FINDINGS: LUNGS: Extensive emphysematous changes of the lungs are present. Crowding of the lung markings in the lung bases is noted which is similar to prior exam. PLEURAL SPACE: Unremarkable. No pneumothorax. HEART: Unremarkable. No cardiomegaly. MEDIASTINUM: Unremarkable. BONES/JOINTS: Several right-sided rib fractures are redemonstrated. IMPRESSION: Stable chest. Electronically signed by: Aidee Castillo MD 03/17/2020 5:59 AM CDT
[2020-03-17] MEDS: LEVALBUTEROL NEBS 1.25 MG/3 ML VIAL NEB SCH ×3 (08:00→16:13)
[2020-03-17] MEDS ORDERED: MAGNESIUM SULFATE PREMIX 2GM 2 GM in PREMIX BAG 1 BAG IVPB ONE (09:55)
[2020-03-17] MEDS ORDERED: LEVALBUTEROL NEBS 1.25 MG/3 ML VIAL NEB PRN (09:56)
[2020-03-17] MEDS: ESTRADIOL TAB 1 MG PO SCH (10:19)
[2020-03-17] MEDS: NICOTINE PATCH 14 MG TD SCH ×2 (10:19→11:09)
[2020-03-17] MEDS: TIOTROPIUM BROMIDE MONOHYDRATE IN SCH (12:23)
[2020-03-17] MEDS ORDERED: levoFLOXacin 500MG IV 500 MG in PREMIX BAG 1 BAG IVPB SCH (14:30)
--- NOTE | 2020-03-17 17:05 | PN ---
SUPERVISING PHYSICIAN: Dayne Wagner MD DATE: 03/17/20 SUBJECTIVE: The patient is still having some shortness of breath associated with exertional effort. She is quite anxious and concerned about the shortness of breath although she is on oxygen at home. I did discuss with her she is showing some slight improvement with the current regimen of steroids and antibiotics, but we will certainly closely observe given the fragility of her condition and her advanced chronic obstructive pulmonary disease. She denies any chest pain, nausea, vomiting or diarrhea. OBJECTIVE: VITAL SIGNS: Temperature 97.7. Pulse 87. Blood pressure 94/60. Saturation 92 to 94% on room air at rest, but desaturates easily with exertional effort. GENERAL: The patient is resting comfortably although she does look at little anxious. She is very pleasant, she is alert. CHEST: I do not hear any rales, rhonchi or wheezing, but lung sounds are diminished towards the bases. She has equal excursion on chest wall. HEART: Regular rate and rhythm. ABDOMEN: Soft, nontender. Positive bowel sounds. EXTREMITIES: No edema. NEUROLOGIC: Alert and oriented times three. LABORATORY: Chemistries today show normal electrolytes as well as creatinine. Magnesium low at 1.6, which we are replacing IV. Otherwise, calcium normal at 9.0 MICROBIOLOGY: Blood cultures remain negative after 24 hours. COVID-19 came back as negative. RADIOLOGY: Repeat chest x-ray shows a stable chest per radiologic interpretation. ASSESSMENT: 1. Acute exacerbation of chronic obstructive pulmonary disease with concerns underlying community acquired pneumonia. 2. Advanced chronic obstructive pulmonary disease as noted in #1 with exacerbation and emphysema in a current smoker. 3. Chronic tobacco abuse. 4. Mild electrolyte imbalance with hypomagnesemia. 5. History of pulmonary nodules, stable on CT, needing followup as an outpatient. 6. Diverticulosis of the colon without any current signs or symptoms of diverticulitis. PLAN: We will continue with Ms. Hall's plan of care at this point with 40 of Solu-Medrol q.6h. for an additional 24 hours. I have also added Pulmicort to her breathing treatments. She has been moved to a regular room. We will continue with aggressive pulmonary hygiene hygiene with Xopenex treatments and the Pulmicort addition. I would think that we could probably discharge her tomorrow. We will hold off on any repeat diagnostics as they have been fairly stable. I suspect she will improve overnight and feel confident that she will do okay at home. Until then, we will continue with treatments, monitor closely and treated as needed until she can transition to outpatient management. [id number] [facility]
[2020-03-17] MEDS: guaiFENesin ER TAB 600 MG TAB PO SCH (20:33)
[2020-03-17] MEDS: ENOXAPARIN SODIUM 40 MG/0.4 ML SYG SUBCU SCH (20:33)
[2020-03-17] MEDS: BUDESONIDE NEBS 0.5 MG/2 ML INH NEB SCH (20:40)
[2020-03-18] MEDS: LEVALBUTEROL NEBS 1.25 MG/3 ML VIAL NEB SCH ×2 (00:16→08:47)
[2020-03-18] MEDS: methylPREDNISolone SODIUM SUC 40 MG/ML VIAL IV SCH ×2 (00:17→06:00)
[2020-03-18] MEDS: PANTOPRAZOLE SODIUM IV 40 MG VIAL IV SCH (06:30)
[2020-03-18] MEDS: NICOTINE PATCH 14 MG TD SCH (08:45)
[2020-03-18] MEDS: ESTRADIOL TAB 1 MG PO SCH (08:45)
[2020-03-18] MEDS: guaiFENesin ER TAB 600 MG TAB PO SCH (08:45)
[2020-03-18] MEDS: TIOTROPIUM BROMIDE MONOHYDRATE IN SCH (08:47)
[2020-03-18] MEDS: BUDESONIDE NEBS 0.5 MG/2 ML INH NEB SCH (08:47)
[2020-03-18 10:07] VITALS: BP 98/62; TEMP 97.9; O2SAT 97
--- NOTE | 2020-03-19 08:08 | DS ---
SUPERVISING PHYSICIAN: Dayne Wagner MD ADMISSION DIAGNOSIS: 1. Acute exacerbation of chronic obstructive pulmonary disease with concerns for developing community acquired pneumonia. 2. 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 3. Mild electrolyte imbalance with a hyponatremia and hypomagnesemia. 4. History of pulmonary nodules, stable. 5. Chronic tobacco abuse. 6. Diverticulosis of the colon. DISCHARGE DIAGNOSIS: 1. Acute exacerbation of chronic obstructive pulmonary disease with probable community acquired pneumonia, showing good response to Levaquin and high dose steroids and negative COVID-19 testing. 2. Chronic tobacco abuse, again counseled for smoking cessation. 3. Mild electrolyte imbalance with hypomagnesemia, resolved with parenteral replacement. 4. History of pulmonary nodules, stable on CT, needing followup as an outpatient. 5. Diverticulosis of the colon without any acute signs of diverticulitis. HISTORY OF PRESENT ILLNESS: Ms. Hall is a 69-year-old female patient with a longstanding history of chronic obstructive pulmonary disease and chronic tobacco abuse. She presented to the Emergency Room today from the clinic complaining of shortness of breath, progressive cough that has gotten worse over the last two weeks. She endorses that she had been seen by Dr. Perez a month ago for similar symptoms and tested negative for COVID-19. That was on 02/12/20. She was at that time given a Z-Jeremias steroid taper. She states she got a little bit better, but not completely over that episode. She endorses that over the last two weeks, her shortness of breath has progressively worsened. She does not normally use oxygen at home, but she does use it p.r.n. and has started to use is more than she normally does. She normally does not take a rescue inhaler during the day, but has had to use a rescue inhaler multiple times throughout the day. She was given a breathing treatment at Dr. Perez's office and sent to the ER for evaluation. Laboratory studies showed she had a normal white count without a left shift. Chemistries showed a mild hyponatremia at 3.3. Otherwise, electrolytes were within normal limits. Troponin was less than 0.02 and BNP was normal at 19. Respiratory viral panel was pending. D-dimer was normal. Chest x-ray per radiologic interpretation showed patchy opacities in the lung bases, likely reflecting scarring as it appears similar to previous, however, superimposed consolidation is not excluded. There was no mention of a pneumothorax. There was noted several old rib fractures. Vital signs in the ER on room showed saturation 90% with respirations 22 to 26. She was not tachycardic, but heart rate was 92, blood pressure 118/68, afebrile at 97.6. Given her COPD and exacerbation, she was given Solu-Medrol, Levaquin and DuoNeb treatments. She is now going to be placed in observation for acute exacerbation of COPD. LABORATORY: CBC on admission showed normal white count of 5,600 without a left shift, hemoglobin 14.2, hematocrit 42.6, coagulation studies showed D-dimer 355. Chemistries on discharge within normal limits. Creatinine 0.4, magnesium replaced at 1.6 and lactic acid normal at 1.3, calcium 9.0, troponin less than 0.02. Urinalysis showed a small amount of bilirubin, 40 ketones, 100 glucose, otherwise within normal limits. COVID-19 testing was negative. Blood cultures remained negative after 48 hours. RADIOLOGY: Her last chest x-ray on 03/17/20 prior to discharge showed a stable chest with no acute findings, just severe extensive senescent changes of the lungs. HOSPITAL COURSE: Ms. Hall was admitted for COPD exacerbation with concerns for developing pneumonia. She was started on Levaquin. She was given aggressive bronchial hygiene with breathing treatments as well as aggressive management with IV steroids. She did show go improvement prior to discharge. On day of discharge, vital signs showed temperature 97.9, pulse 75, blood pressure 98/62, saturation 97% on room air at rest. On admission, her O2 saturation was 90% on room air. DISCHARGE ASSESSMENT: GENERAL: She was alert, in no acute distress. CHEST: Lungs clear to auscultation, just slightly diminished towards the bases. No wheezing or rhonchi noted. HEART: Regular rate and rhythm. ABDOMEN: Soft, nontender. Positive bowel sounds. EXTREMITIES: No edema. NEUROLOGIC: Alert and oriented x3. Again, with treatment after observation period, she was found to be stable with good improvement with the antibiotics and steroids and was felt clinically stable enough to continue with outpatient management and given her COVID-19 testing was negative. PLAN: Ms. Hall was discharged on 03/18/20. She is going to followup with Dr. Perez the following week after discharge. She was told not to go to work until she was cleared by Dr. Perez and okay with her employer because I think she actually was given a week off due to her high risk factors. She is again encouraged to stop smoking, which she is actively doing. I went ahead and covered her with continued antibiotics with Levaquin for a total of 10 days treatment course, 500 mg daily, and a long taper on steroids 10 mg tablets over 12 days. She is to resume her usual diet. She is to increase her activity as tolerated. She is encouraged to wear oxygen which she does have at home at least at night and when she needs it, certainly not when she is smoking. Home medications were continued as prior to hospitalization. Again, she was prescribed Levaquin 500 mg q daily for 7 days for a total of 10 day treatment and prednisone taper dosing of 10 mg tablets over 12 days. CONDITION ON DISCHARGE: Stable and improved. DISPOSITION: The patient was discharged to the care of family members. #[id number] [facility]
== END 2020-03-18 11:14 | disposition home or self-care (01) ==
LOC: ER 11:43 → MS 13:25 → UNDOADMOB 13:25
PROVIDERS: ADMIT Family Medicine; ATTEND Nurse Practitioner Family
DX: J44.1 Chronic obstructive pulmonary disease with (acute) exacerbation (principal); F17.210 Nicotine dependence, cigarettes, uncomplicated; E83.42 Hypomagnesemia; E87.1 Hypo-osmolality and hyponatremia; E87.8 Other disorders of electrolyte and fluid balance, not elsewhere classified; R91.8 Other nonspecific abnormal finding of lung field; K57.30 Diverticulosis of large intestine without perforation or abscess without bleeding; M85.88 Other specified disorders of bone density and structure, other site; Z11.59 Encounter for screening for other viral diseases; Z79.51 Long term (current) use of inhaled steroids; Z79.899 Other long term (current) drug therapy
CPT/HCPCS: 96367; 96365; 96375 ×2; 96376 ×3; 96372 ×2; J7611; J1956 ×2; J1030 ×7; J2930; J2270; J7030; J1650 ×2; J7626 ×2; A4216 ×3; J7620; J3475; J7614 ×5; 85379; 80048; 80053; 36415 ×5; 81001; 85025; 87040; 83735 ×2; 84484; 83880; 83605; 71045 ×2; 94640 ×10; 94760 ×2; 94664 ×2; 94762 ×2; 99285; 93005; U0002

== ENCOUNTER → 2020-08-02 | Outpatient (CLI) | payer MEDICARE, OTHER ==
--- NOTE | 2020-08-06 16:54 | MAM ---
EXAM DESCRIPTION: 3D Screening BILATERAL : Digital Mammography. CLINICAL HISTORY: 70 years Female ANNUAL SCREENING . No complaints. Sister with breast cancer at age 65. Menarche age 13. Childbirth age 22. Menopause age 32. Benign left breast biopsy. Currently on HRT. Lifetime risk of developing breast cancer (Tyrer-Cuzick model)(%): 9.9. COMPARISON: Diagnostic left breast tomosynthesis and directed ultrasound left breast February 2020. Similar exam from August 2019. Bilateral screening digital breast tomosynthesis July 2019. TECHNIQUE: Bilateral CC and MLO projection full-field images, digital tomosynthesis mammographic technique. Bilateral digital 2-D full-field MLO images. CAD available for 2-D images. FINDINGS: The breast parenchymal density pattern is: Heterogeneously dense breast tissue, which may obscure small masses. No skin thickening or nipple retraction. Bilateral solitary microcalcifications. Bilateral coarse calcifications. Bilateral fibroglandular tissues show a nodular appearance. Bilateral circumscribed mass densities are most likely cysts. Retroareolar cyst enlarging on the left. Also smaller circumscribed mass density, most likely involuting cyst in the middle third of the left breast. No new focal, stellate mass or density, focal asymmetry , and no suspicious microcalcifications bilaterally. IMPRESSION: Benign exam. BIRAD CATEGORY: 2 BENIGN FINDINGS. RECOMMENDATIONS: FOLLOW UP: Routine digital bilateral mammographic screening, one year interval from July 2019. Written communication explaining the IMPRESSION and follow-up, will be mailed to the patient and referring health care provider. According to the [employer], yearly mammograms are recommended starting at age 40 and continuing as long as a woman is in good health. Any breast change noted on a breast self-exam should be reported promptly to the patient's healthcare provider. Breast MRI is recommended for women with an approximately 20-25% or greater lifetime risk of breast cancer, including women with a strong family history of breast or ovarian cancer and women who have been treated for Hodgkin's disease. A negative mammographic report should not delay tissue diagnosis in patients with significant clinical history or physical findings. Extremely dense breast tissue limits the sensitivity of digital mammography. Electronically signed by: Jeronimo Barrios MD 08/06/2020 4:52 PM CDT
== END ==
LOC: MAMMO 11:39
PROVIDERS: ATTEND Family Medicine
DX: Z12.31 Encounter for screening mammogram for malignant neoplasm of breast (principal)

== ENCOUNTER → 2020-08-03 | Outpatient (CLI) | payer MEDICARE, OTHER | LOC: GMAM 13:09 | PROVIDERS: ATTEND Family Medicine | DX: E53.8 Deficiency of other specified B group vitamins (principal); E55.9 Vitamin D deficiency, unspecified; Z79.899 Other long term (current) drug therapy; E78.2 Mixed hyperlipidemia ==

== ENCOUNTER → 2020-09-26 | Outpatient (CLI) | payer MEDICARE, OTHER ==
--- NOTE | 2020-09-27 07:28 | CT ---
Procedure: CT LUNG SCREENING Exam Date: September 26, 2020. Ordering Provider: Hussein Perez Clinical Indication: PERSONAL HX OF NICOTINE DEPENDENCE . Baseline screening study. Current cigarette smoker. 20 pack-year history. This patient meets eligibility criteria for low-dose CT lung cancer screening. Comparison: CT scan of the chest without contrast August 2019. Technique: Using a multislice scanner, sequential helical axial imaging was obtained in the thorax, 2.5 mm thickness, 2.5 mm separation, from the level of the thoracic inlet through the lung bases without IV contrast. A low dose protocol was utilized for BMI less than 30: BMI: 17. CTDI: 1.76 mGy. 120. kVp. 45 mA. DLP 69 mGy-cm. 2D sagittal and coronal reconstructed images, 6.0 mm thickness, were obtained. This exam was performed according to our departmental dose optimization program which includes use of automated exposure control, adjustment of the mA and/or kV according to patient size and/or use of iterative reconstruction technique. Nodule measurements under 10 mm are given as mean value of 3 axes diameters. FINDINGS: Lungs and large airways: Diffuse dilated airspaces with mostly bulla more than blebs in the upper lung nolasco. Increasing blebs and increasing lung tissue in the mid and lower lung nolasco. Septal thickening upper lung more than lower lung. Bilateral pleural parenchymal scarring all lobes. No abnormal nodules and no masses. No acute infiltrates. Pleura and space: Bilateral sites of diffuse and focal thickening. No acute process. Mediastinum and martínez: evaluation limited by low dose technique and lack of IV contrast. Evaluation is limited due to lack of mediastinal fat. No large nodes or dominant soft tissue masses. Heart and great vessels: Calcifications in coronary arteries, and aortic arch and descending thoracic aorta. Ectasia in the arch. Stable. Chest wall, lower neck, axillae: Evaluation also limited by same factors as described above. Bilaterally dense breast with fibroglandular tissue. Upper abdomen: Evaluation limited by low-dose technique, and small body habitus. No free air or free fluid. Osseous structures: Evaluation limited by low dose MIP technique. Spondylosis. No lytic or blastic lesions. Arthrosis glenohumeral joints and sternoclavicular joints. IMPRESSION: Moderate emphysema and air trapping in the lungs with multiple bulla in the upper lung nolasco and blebs in the lower lung nolasco and residual lung tissue. No abnormal nodules and no mass. No focal infiltrates.. [facility] Best Practice Recommendations: please see below for Lung RADS category and FOLLOW-UP.* *Lung RADS category Category 1 - No nodule or definitely benign nodules (probability of malignancy less than 1%). Follow-up: Continue annual screening with Low Dose Chest CT in 12 months. Electronically signed by: Jeronimo Barrios MD 09/27/2020 7:27 AM [facility]
== END ==
LOC: CT 07:58
PROVIDERS: ATTEND Family Medicine
DX: Z12.2 Encounter for screening for malignant neoplasm of respiratory organs (principal); J43.9 Emphysema, unspecified; Z87.891 Personal history of nicotine dependence